=== PATIENT | female | born 1990 | race American Indian/Alaskan Native ===

== ENCOUNTER 2018-06-23 08:49 | Inpatient (IN) | payer MEDICAID ==
--- NOTE | 2018-06-23 09:06 | History and Physical Report ---
History of Present Illness Date of examination: 06/23/18 (postdates IOL) Date of admission: 06/23/18 08:49 History of present illness: EDC Confirmation: 06/13/2018 Gestational Age: 21 4/7 weeks Past History : 4 Term Births: 2 Living Children: 2 Para: 2 Aborta: 1 Elect. Ab: 1 # 1 Delivery date: 05/2015 Weeks Gestation: 41 Delivery type: Anesthesia type: none Delivery location: [facility] Infant Sex: Female weight: 7-7 # 2 Delivery date: 12/2016 Weeks Gestation: 41 Delivery type: Anesthesia type: epidural Delivery location: [facility] Infant Sex: Male weight: 7 # 3 Delivery date: 2008 Weeks Gestation: 16 Delivery type: EAB Past Medical History: Negative Past Medical History Past Surgical History: Negative Past Surgical History Family History Summary: No Known Family History - Entered On: 02/04/2018 Social History: Patient is Smoking History: Patient has never smoked. Risk Factors: Smoked Tobacco Use: Never smoker Caffeine use: 2 drinks per day Alcohol use: no Exercise: no Seatbelt use: 100 % Dietary Counseling: pn yes Past Medical History Surgery (Non-obgyn hospitalist physician): Negative Past Surgical History Abnormal PAP: negative HECTOR Exposure: negative Infertility: negative Uterine Anomaly: negative Uterine Surgery (not C/S): negative Other Gynecologic Problems: negative Social Hx: Patient is Smoking History: Patient has never smoked. Infection History Hx of STD: none Personal hx. of genital herpes: yes Partner hx. of genital herpes: no Rash, Viral, or Febrile illness since last LMP? no Varicella/Chicken Pox Status: Previous Disease Genetic History Congenital Heart Defect: Mom: no Dad: no Harjit Disease: Mom: no Dad: no Thalassemia Mom: no Dad: no Neural Tube Defect Mom: no Dad: no Down's Syndrome Mom: no Dad: no Riaz-Sachs Mom: no Dad: no Sickle Cell Disease/Trait Mom: no Dad: no Hemophilia Mom: no Dad: no Muscular Dystrophy Mom: no Dad: no Cystic Fibrosis Mom: no Dad: no Gaetano Chorea Mom: no Dad: no Mental Retardation Mom: no Dad: no Fragile X Mom: no Dad: no Other Genetic/Chromosomal Disorder Mom: no Dad: no Child w/other defect Mom: no Dad: no Enviromental Exposures Xray Exposure: no Medication, drug, or alcohol use since LMP: no Chemical/Other Exposure: no Exposure to Cat Liter: no Hx of Parvovirus (Fifth Disease): no Occupational Exposure to Children: none Active Medications (reviewed today): None Current Allergies (reviewed today): No known allergies Past History - Obstetrical History Expected Date of Delivery: 06/13/18 Actual Gestation: 41 Week(s) 4 Day(s) : 4 Para: 2 Hx # Term Pregnancies: 2 Number of Pregnancies: 0 Spontaneous Abortions: 0 Induced : 1 Number of Living Children: 2 Medications and Allergies Allergies Allergy/AdvReac Type Severity Reaction Status Date / Time No Known Allergies Allergy Verified 06/23/18 11:34 Home Medications Medication Instructions Recorded Confirmed Last Taken Type Pnv No.95/Ferrous Fum/Folic AC 1 each PO DAILY 06/23/18 06/23/18 06/23/18 07:30 History [ Formula Tablet] Active Meds: Active Medications Ephedrine Sulfate (Ephedrine Sulfate) 10 mg IV Q2M PRN PRN Reason: Hypotension Fentanyl (Sublimaze) 100 mcg IV Q2H PRN PRN Reason: Labor Pain Lactated Ringer's (Lactated Ringers) 1,000 mls @ 125 mls/hr IV DIRECT SKIP Oxytocin/Sodium Chloride (Pitocin/Ns 20 Unit/1000ml Drip) 20 units in 1,000 mls @ 125 mls/hr IV DIRECT SKIP Oxytocin/Sodium Chloride (Pitocin/Ns 30 Unit/500ml) 30 units in 500 mls @ 4 mls/hr IV Q30MIN SKIP; Protocol Lidocaine (Xylocaine 2%) 20 ml INFILTRATI ONCE ONE Stop: 06/23/18 08:57 Mineral Oil (Mineral Oil) 30 ml PO QHS PRN PRN Reason: Constipation Ondansetron HCl (Zofran) 4 mg IV Q8H PRN PRN Reason: Nausea And Vomiting Terbutaline Sulfate (Brethine) 0.25 mg SUB-Q ONCE PRN PRN Reason: Hyperstimulation/Hypertonicity - Physical Exam Breasts: Positive: deferred Cardiovascular: Regular rate, Normal S1, Normal S2 Lungs: Positive: Clear to auscultation Abdomen: Positive: normal appearance, soft, normal bowel sounds. Negative: distention, tenderness Genitourinary (Female): Positive: normal external genitalia Vulva: both: normal Vagina: Positive: normal moisture. Negative: discharge Cervix: Negative: lesion, discharge Uterus: Positive: normal size, normal contour Adnexa: both: normal Anus/Rectum: Positive: normal perianal skin, heme negative. Negative: rectal mass, hemorrhoids Extremities: Positive: normal Deep Tendon Reflex Grade: Normal +2 - Obstetrical FHR: category 1 Cervical Dilatation: 1.5 Cervical Effacement Percentage: 50 station: -4 Uterine Contraction Pattern: Irregular Uterine Tone Measurement Phase: Resting Uterine Contraction Intensity: Mild Results Result Diagrams: 06/23/18 22:45 All other labs normal. GBS negative HBsAg Screen Negative Negative *1 RPR Non Reactive Non Reactive *2 Rubella Antibodies, IgG 4.31 index Immune >0.99 *3 Non-immune <0.90 Equivocal 0.90 - 0.99 Immune >0.99 ABO Grouping B *4 Rh Factor Positive *5 Please note: Prior records for this patient's ABO / Rh type are not available for additional verification. Antibody Screen Negative Negative *6 WBC 10.3 x10E3/uL 3.4-10.8 *7 RBC [L] 3.49 x10E6/uL 3.77-5.28 *8 Hemoglobin [L] 8.0 g/dL 11.1-15.9 *9 Hematocrit [L] 26.9 % 34.0-46.6 *10 MCV [L] 77 fL 79-97 *11 MCH [L] 22.9 pg 26.6-33.0 *12 MCHC [L] 29.7 g/dL 31.5-35.7 *13 RDW [H] 16.0 % 12.3-15.4 *14 Platelets 287 x10E3/uL 150-379 *15 Neutrophils 70 % Not Estab. *16 Lymphs 24 % Not Estab. *17 Monocytes 4 % Not Estab. *18 Eos 2 % Not Estab. *19 Basos 0 % Not Estab. *20 ! Immature Cells <No Reported Value> *21 Neutrophils (Absolute) [H] 7.1 x10E3/uL 1.4-7.0 *22 Lymphs (Absolute) 2.5 x10E3/uL 0.7-3.1 *23 Monocytes(Absolute) 0.4 x10E3/uL 0.1-0.9 *24 Eos (Absolute) 0.2 x10E3/uL 0.0-0.4 *25 Baso (Absolute) 0.0 x10E3/uL 0.0-0.2 *26 ! Immature Granulocytes 0 % Not Estab. *27 ! Immature Grans (Abs) 0.0 x10E3/uL 0.0-0.1 *28 ! NRBC <No Reported Value> *29 Hematology Comments: <No Reported Value> *30 Tests: (2) Panel 522297 (191603) HIV Screen 4th Generation wRfx Non Reactive Non Reactive *31 Tests: (3) Gest. Diabetes 1-Hr Screen (964316) ! Gestational Diabetes Screen 103 mg/dL 65-139 *32 According to ADA, a glucose threshold of >139 mg/dL after 50-gram load identifies approximately 80% of women with gestational diabetes mellitus, while the sensitivity is further increased to approximately 90% by a threshold of >129 mg/dL. Tests: (4) HCV Ab w/Rflx to Verification (254362) ! HCV Ab <0.1 s/co ratio 0.0-0.9 *33 Tests: (5) Comment: (437273) ! Comment: SPRCS *34 Non reactive HCV antibody screen is consistent with no HCV infection, unless recent infection is suspected or other evidence exists to indicate HCV infection. Tests: (6) Urine Culture, Routine (543101) Urine Culture, Routine Final report *35 Tests: (7) Result ([id number]) ! Result 1 "Result Below..." *36 RESULT: Lactobacillus species 10,000-25,000 colony forming units per mL Susceptibility not normally performed on this organism. Assessment and Plan 27yo @ 41 weeks presents for IOL GBS negative Orders in EMR.
[2018-06-23 09:39] LABS: Hematocrit 25.5 % (30.3-42.9); Hemoglobin 7.9 gm/dl (10.1-14.3); Mean Corpuscular HGB Conc 31 % (30-34); Mean Corpuscular Volume 71 fl (79-97); Platelet Count 233 K/mm3 (140-440); Red Blood Count 3.62 M/mm3 (3.65-5.03); Red Cell Distribution Width 19.9 % (13.2-15.2)
[2018-06-23] MEDS ORDERED: PITOCin/NS 20 UNIT/1000ML DRIP 20 UNITS/1,000 ML BAG IV SCH (12:00)
[2018-06-23] MEDS ORDERED: BRETHINE SUB-Q PRN (12:00)
[2018-06-23] MEDS ORDERED: ZOFRAN IV PRN (12:00)
[2018-06-23] MEDS ORDERED: XYLOCAINE 2% INFILTRATI NR (12:00)
[2018-06-23] MEDS ORDERED: MINERAL OIL PO PRN (12:00)
[2018-06-23] MEDS: LACTATED RINGERS 1,000 ML IV SCH ×3 (12:35→21:15)
[2018-06-23] MEDS: PITOCin/NS 30 UNIT/500ML 30 UNITS/500 ML BAG IV SCH ×2 (12:47→13:45)
[2018-06-23] MEDS: SUBLIMAZE IV PRN ×2 (15:04→17:12)
[2018-06-23] MEDS ORDERED: NUBAIN IV PRN (20:20)
[2018-06-23] MEDS ORDERED: BENADRYL IV PRN (20:20)
[2018-06-23] MEDS ORDERED: NARCAN 2 MG/2 ML IV PRN (20:20)
--- NOTE | 2018-06-23 20:24 | Anesthesia Consultation ---
Anesthesia Consult and Med Hx Date of service: 06/23/18 - Airway Anesthetic Teeth Evaluation: Good Mental/Hyoid Distance: Adequate Mallampati Class: Class II Intubation Access Assessment: Good - Pulmonary Exam CTA: Yes - Pre-Operative Health Status ASA Pre-Surgery Classification: ASA2 Proposed Anesthetic Plan: Epidural - Pulmonary Hx Asthma: No Hx Respiratory Symptoms: No SOB: No COPD: No Home Oxygen Therapy: No Hx Pneumonia: No Hx Sleep Apnea: No - Cardiovascular System Hx Hypertension: No Hx Coronary Artery Disease: No Hx Heart Attack/AMI: No Hx Angina: No Hx Percutaneous Transluminal Coronary Angioplasty (PTCA): No Hx Cardia Arrhythmia: No Hx Pacemaker: No Hx Internal Defibrillator: No Hx Valvular Heart Disease: No Hx Heart Murmur: No Hx Peripheral Vascular Disease: No - Central Nervous System Hx Neuromuscular Disorder: No Hx Seizures: No CVA: No Hx Back Pain: No Hx Psychiatric Problems: No - Gastrointestinal Hx Ulcer: No Hx Gastroesophageal Reflux Disease: No - Endocrine Hx Renal Disease: No Hx End Stage Renal Disease: No Hx Cirrhosis: No Hx Liver Disease: No Hx Insulin Dependent Diabetes: No Hx Non-Insulin Dependent Diabetes: No Hx Thyroid Disease: No Hx Hypothyroidism: No Hx Hyperthyroidism: No - Hematic Hx Anemia: Yes (present and previous ) Hx Sickle Cell Disease: No - Other Systems Hx Alcohol Use: Yes (occas social) Hx Substance Use: No Hx Cancer: No Hx Obesity: No
[2018-06-23] MEDS ORDERED: CYTOTEC ONE (21:00)
[2018-06-23] MEDS ORDERED: fentaNYL-BUPIV 2 MCG/ML-0.125% 200 MCG/100 ML BAG EPIDURAL SCH (21:00)
[2018-06-23] MEDS ORDERED: CYTOTEC PR NR (21:05)
--- NOTE | 2018-06-23 21:05 | Procedure Note ---
OB Delivery Note - Delivery Date of Delivery: 06/23/18 Surgeon: JESSIE THOMAS Estimated blood loss: other (400ml) - Vaginal Delivery presentation: vertex Delivery position: OA Intrapartum events: meconium (thick with AROM right before delivery) Delivery induction: oxytocin Delivery augmentation: pitocin Delivery monitor: external FHT, external uterine Route of delivery: Delivery placenta: spontaneous Delivery cord: 3 umbilical vessels Episiotomy: none Delivery laceration: 1st degree (periurethral) Anesthesia: intravenous, epidural Delivery comments: Delivery as above was not complicated. Nuchal cord times one loose and reduced spontaneously with delivery of head and ant shoulder. Cord clamped x 2 and cut times one and infant taken to waiting NICU and respiratory teams. Teams called due to meconium. Placenta spontaneously delivered intact. Uterine atony noted and relived with fundal massage, pitocin iv and 800mcg of cytotec per rectum. EBL 400ml. Mother and stable in LDR. - A at 1 minute: 8 at 5 minutes: 9 Infant Gender: Female (7lbs 6.4oz)
[2018-06-23] MEDS ORDERED: LANSINOH TP PRN (21:09)
[2018-06-23] MEDS ORDERED: PHENERGAN PO PRN (21:09)
[2018-06-23] MEDS ORDERED: PHENERGAN PR PRN (21:09)
[2018-06-23] MEDS ORDERED: TYLENOL PO PRN (21:09)
[2018-06-23] MEDS ORDERED: TUCKS PAD TP PRN (21:09)
[2018-06-23] MEDS ORDERED: DULCOLAX PR PRN (22:00)
[2018-06-23] MEDS ORDERED: SODIUM CHLORIDE FLUSH SYRINGE 10 ML IV NR (22:00)
[2018-06-23] MEDS ORDERED: IBUPROFEN PO SCH (22:00)
[2018-06-23 23:01] LABS: Hematocrit 24.3 % (30.3-42.9); Hemoglobin 7.4 gm/dl (10.1-14.3)
[2018-06-23] MEDS: IBUPROFEN PO SCH (23:04)
[2018-06-23] MEDS: FEOSOL PO SCH (23:04)
[2018-06-24] MEDS: IBUPROFEN PO SCH ×4 (05:22→23:40)
--- NOTE | 2018-06-24 08:35 | Progress Note ---
Assessment and Plan Fundus firm, ML, U/1, bleeding scant. Pain is well controlled with pain medication. Pre-existing anemia on admission, Post delivery H&H 7.4/24.3, patient is asymptomatic. No complaints. Breast feeding is going well. Continue current POC. Plan for discharge tomorrow. Subjective - Subjective Date of service: 06/24/18 Patient reports: appetite normal, voiding normally, pain well controlled, ambulating normally [place]: doing well Objective - Vital Signs Latest vital signs: Vital Signs Temp Pulse Resp BP BP Pulse Ox 06/24/18 07:31 98.5 F 98 H 24 113/74 100 06/24/18 04:51 98.9 F 100 H 18 103/60 06/23/18 23:00 99.2 F 99 H 20 119/71 06/23/18 22:19 105 H 133/57 06/23/18 22:14 127 H 146/67 06/23/18 22:04 103 H 120/64 06/23/18 21:49 106 H 119/56 06/23/18 21:34 109 H 128/67 06/23/18 21:19 117 H 128/63 06/23/18 21:04 98.3 F 121 H 18 124/61 124/61 06/23/18 20:49 126 H 142/61 06/23/18 20:46 134 H 122/66 06/23/18 20:42 130 H 131/83 06/23/18 20:40 125 H 121/74 06/23/18 20:36 114 H 140/88 06/23/18 20:33 117 H 139/81 69 L 06/23/18 20:31 106 H 135/74 06/23/18 20:28 113 H 131/70 100 06/23/18 20:26 59 L 06/23/18 20:24 133 H 126/65 06/23/18 20:22 114 H 119/67 100 06/23/18 20:19 114 H 75 L 06/23/18 20:18 107 H 130/82 06/23/18 20:17 110 H 100 06/23/18 20:16 104 H 133/81 06/23/18 20:13 104 H 130/81 06/23/18 20:12 102 H 78 L 06/23/18 20:10 107 H 129/98 94 06/23/18 20:07 105 H 131/77 06/23/18 20:06 101 H 100 06/23/18 20:01 118 H 100 06/23/18 19:56 105 H 100 06/23/18 19:52 101 H 129/67 06/23/18 19:51 111 H 100 06/23/18 19:45 100 H 100 06/23/18 19:44 116 H 0 L 06/23/18 19:40 107 H 99 06/23/18 19:37 114 H 81 L 06/23/18 19:34 83 76 L 06/23/18 19:31 109 H 0 L 06/23/18 19:26 109 H 100 06/23/18 19:21 96 H 0 L 06/23/18 19:20 99.2 F 102 H 20 119/79 119/79 06/23/18 19:18 102 H 100 06/23/18 19:15 52 L 22 L 06/23/18 19:13 97 H 100 06/23/18 19:10 106 H 0 L 06/23/18 19:08 99 H 100 06/23/18 19:04 18 L 06/23/18 19:03 98 06/23/18 13:46 103 H 119/73 06/23/18 12:47 110 H 110/71 06/23/18 11:03 112 H 92 06/23/18 11:02 110 H 100 06/23/18 10:57 113 H 100 06/23/18 10:52 109 H 100 06/23/18 10:50 107 H 33 L 06/23/18 10:46 94 H 100 06/23/18 10:41 98 H 100 06/23/18 10:38 102 H 84 06/23/18 10:36 110 H 97 06/23/18 10:33 99 H 90 06/23/18 10:31 101 H 98 06/23/18 10:26 107 H 89 06/23/18 10:24 48 L 06/23/18 10:21 100 H 96 06/23/18 10:16 77 0 L 06/23/18 10:09 58 L 14 L 06/23/18 10:03 116 H 69 L 06/23/18 09:58 121 H 99 06/23/18 09:52 94 06/23/18 09:51 107 H 100 06/23/18 09:46 108 H 100 06/23/18 09:44 139 H 47 L 06/23/18 09:41 94 H 100 06/23/18 09:36 105 H 100 06/23/18 09:31 104 H 0 L 06/23/18 09:29 96 H 0 L 06/23/18 09:25 110 H 91 06/23/18 09:24 110 H 0 L 06/23/18 09:19 102 H 109/74 06/23/18 09:18 71 84 Intake and Output 06/23/18 06/24/18 06/24/18 23:59 07:59 15:59 Intake Total 927.083 360 Output Total 700 Balance 927.083 -340 Intake: IV 927.083 Lactated Ringers 1,000 ml 927.083 @ 125 mls/hr IV DIRECT SKIP Rx#:[id number] Intake, Free Water 360 Output: Urine 700 Void 700 Other: Total, Output Amount 300 Estimated Blood Loss 400 - Exam Abdomen: Present: normal appearance, soft Uterus: Present: normal, firm Extremities: Present: normal Incision: Present: normal, dry, intact - Labs Labs: Abnormal lab results 06/23/18 06/23/18 Range/Units 09:15 22:45 RBC 3.62 L (3.65-5.03) M/mm3 Hgb 7.9 L 7.4 L (10.1-14.3) gm/dl Hct 25.5 L 24.3 L (30.3-42.9) % MCV 71 L (79-97) fl MCH 22 L (28-32) pg RDW 19.9 H (13.2-15.2) %
[2018-06-24 09:34] LABS: Hematocrit 21.3 % (30.3-42.9); Hemoglobin 6.7 gm/dl (10.1-14.3)
[2018-06-24] MEDS: FEOSOL PO SCH ×3 (10:11→21:50)
[2018-06-24] MEDS: COLACE PO SCH ×2 (13:40→21:50)
--- NOTE | 2018-06-24 18:47 | Event Note ---
Date: 06/24/18 Patient remains asymptomatic from anemia. Patient declines offer for blood transfusion at this time. States "I feel perfectly fine". H&H reviewed with Dr. Vazquez. [facility]. Stat H&H order entered, MILES RN notified of order. Will continue to monitor.
[2018-06-24 19:57] LABS: Hematocrit 23.3 % (30.3-42.9); Hemoglobin 7.2 gm/dl (10.1-14.3)
[2018-06-25] MEDS: IBUPROFEN PO SCH ×2 (04:56→12:30)
--- NOTE | 2018-06-25 07:37 | Discharge Summary ---
Providers - Providers Date of Admission: 06/23/18 08:49 Date of discharge: 06/25/18 (pt agrees with d/c; no s/sx of anemia) Attending physician: JESSIE THOMAS Primary care physician: JESSIE THOMAS Hospitalization Reason for admission: induction of labor Delivery: Episiotomy: none Laceration: none Incision: normal Other procedures: none complications: none Discharge diagnosis: IUP at term delivered baby: female Hospital course: uncomplicated vaginal delivery Pt resting no c/o voiced VSS ff below umb Lochia scant H&H 12/23 Pt declined transfusion Pt is asymptomatic Doing well s/p vag delivery; with anemia P: d/c today with instructions RTO 4 weeks PP care RX po iron Condition at discharge: Good Disposition: DC-01 TO HOME OR SELFCARE - Discharge Diagnoses (1) Normal spontaneous vaginal delivery Status: Acute Comment: RTO 4 weeks PP care Plan - Provider Discharge Summary Activity: routine Diet: routine Instructions: routine Additional instructions: [] Smoking cessation referral if applicable(refer to patient education folder for contact #) [] Refer to [facility]'s [facility] Booklet Call your doctor immediately for: * Fever > 100.5 * Heavy vaginal bleeding ( >1 pad per hour) * Severe persistent headache * Shortness of breath * Reddened, hot, painful area to leg or breast * Drainage or odor from incision. * Keep incision clean and dry at all times and follow doctor's instructions regarding bathing/showering - Follow up plan Follow up: JESSIE THOMAS MD [Primary Care Provider] - 07/23/18 (Congratulations! Please call [phone] to schedule your visit in 4 weeks. Take medications as prescribed. Call with concerns.)
[2018-06-25] MEDS: COLACE PO SCH (10:46)
[2018-06-25] MEDS: FEOSOL PO SCH (10:48)
[2018-06-25 16:53] VITALS: BP 105/70
== END 2018-06-25 17:00 | disposition home or self-care (01) | DRG 775 ==
LOC: LD 08:49 → OB 22:40
PROVIDERS: ADMIT Obstetrics & Gynecology; ATTEND Obstetrics & Gynecology
PROC: 10E0XZZ Delivery of Products of Conception, External Approach (ICD-10-PCS; principal; 2018-06-23)
PROC: 10907ZC Drainage of Amniotic Fluid, Therapeutic from Products of Conception, Via Natural or Artificial Opening (ICD-10-PCS; 2018-06-23)
PROC: 3E033VJ Introduction of Other Hormone into Peripheral Vein, Percutaneous Approach (ICD-10-PCS; 2018-06-23)
PROC: 10E0XZZ Delivery of Products of Conception, External Approach (ICD-10-PCS; 2018-06-23)
PROC: 3E0R3BZ Introduction of Anesthetic Agent into Spinal Canal, Percutaneous Approach (ICD-10-PCS; 2018-06-23)
PROC: 00HU33Z Insertion of Infusion Device into Spinal Canal, Percutaneous Approach (ICD-10-PCS; 2018-06-23)
DX: O48.0 Post-term pregnancy (principal); O77.0 Labor and delivery complicated by meconium in amniotic fluid; O69.81X0 Labor and delivery complicated by cord around neck, without compression, not applicable or unspecified; Z3A.41 41 weeks gestation of pregnancy; Z37.0 Single live birth; O71.82 Other specified trauma to perineum and vulva; O70.0 First degree perineal laceration during delivery
CPT/HCPCS: 36415; 85014; 85018; 85027; 86592; 86850; 86900; 86901; 88307; G0378; J2405; J2590; J3010; J7120